=== PATIENT | male | born 1965 | race African-American/Black ===

== ENCOUNTER 2020-09-28 21:09 | Inpatient (IN) | payer SELFPAY ==
[~2020-09-28] VITALS: Ht 177.8 cm; Wt 127.0 kg
[2020-09-28 22:28] LABS: BASO # 0.1 x10^3/uL (0.0-0.2); BASO % 1 % (0-3); EOS # 0.2 x10^3/uL (0.0-0.7); EOS % 2 % (0-3); HEMATOCRIT 31.2 % (39.0-53.0); HEMOGLOBIN 10.8 g/dL (13.0-17.5); LYMPH % 39 % (24-48); MEAN CORPUSCULAR HEMOGLOBIN 31 pg (25-35); MEAN CORPUSCULAR HGB CONC 35 g/dL (31-37); MEAN CORPUSCULAR VOLUME 90 fL (79-100); MONO # 0.9 x10^3/uL (0.0-1.1); MONO % 8 % (0-9); NEUT # 5.3 x10^3/uL (1.8-7.7); NEUT % 51 % (31-73); PLATELET COUNT 244 x10^3/uL (140-400); RED BLOOD COUNT 3.46 x10^6/uL (4.30-5.70); RED CELL DISTRIBUTION WIDTH 13.2 % (11.5-14.5); WHITE BLOOD COUNT 10.4 x10^3/uL (4.0-11.0)
[2020-09-28 22:33] LABS: FECAL OB PT POSITIVE (NEG)
[2020-09-28 22:38] LABS: PROTHROMBIN TIME PATIENT 13.2 SEC (11.7-14.0)
[2020-09-28 22:40] LABS: CALCIUM 9.1 mg/dL (8.5-10.1); CREATININE 1.4 mg/dL (0.7-1.3); GFR 64.1; POTASSIUM 3.5 mmol/L (3.5-5.1)
[2020-09-28 22:46] LABS: ALBUMIN 3.2 g/dL (3.4-5.0); MAGNESIUM 2.1 mg/dL (1.8-2.4); TOTAL BILIRUBIN 0.3 mg/dL (0.2-1.0); TOTAL PROTEIN 6.5 g/dL (6.4-8.2)
--- NOTE | 2020-09-28 22:53 | PHYS DOC ---
Past Medical History Past Medical History: Diabetes-Type II, Hypertension Past Surgical History: Other Additional Past Surgical Histo: HERNIA A CHILD Smoking Status: Never Smoker Alcohol Use: None General Adult EDM: Chief Complaint: ABDOMINAL PAIN HPI: HPI: Patient is a 54 year old man with history of diabetes type 2, hypertension, who presents to the ED today stating he believes he has a bleeding ulcer again. Patient states for the last 2 days he has had black tarry stools. He states to day he vomited bright red blood. He is also complaining of mild intermittent cramping-like pain diffusely throughout the abdomen since yesterday. Patient denies anything specifically exacerbating or relieving his abdominal pain. Patient denies being on any blood thinners. Review of Systems: Review of Systems: Constitutional: Denies fever or chills. [] Eyes: Denies change in visual acuity. [] HENT: Denies nasal congestion or sore throat. [] Respiratory: Denies cough or shortness of breath. [] Cardiovascular: Denies chest pain or edema. [] GI: Reports abdominal pain, hematemesis and melena : Denies dysuria. [] Musculoskeletal: Denies back pain or joint pain. [] Integument: Denies rash. [] Neurologic: Denies headache, focal weakness or sensory changes. [] Psychiatric: Denies depression or anxiety. [] Heart Score: Risk Factors: Risk Factors: DM, Current or recent (<one month) smoker, HTN, HLP, family history of CAD, obesity. Risk Scores: Score 0 - 3: 2.5% MACE over next 6 weeks - Discharge Home Score 4 - 6: 20.3% MACE over next 6 weeks - Admit for Clinical Observation Score 7 - 10: 72.7% MACE over next 6 weeks - Early Invasive Strategies Current Medications: Current Medications Medications (Trade) Dose Ordered Sig/Roberta Start Time Stop Time Status Last Admin Dose Admin Famotidine (Pepcid Vial) 20 mg 1X ONCE 09/28/20 23:00 09/28/20 23:01 Ondansetron HCl (Zofran) 4 mg 1X ONCE 09/28/20 23:00 09/28/20 23:01 Sodium Chloride 1,000 ml @ 1,000 mls/hr 1X ONCE 09/28/20 23:00 09/28/20 23:59 Allergies: Allergies: Allergies Coded Allergies Type Severity Reaction Last Updated Verified No Known Drug Allergies 09/28/20 No Physical Exam: PE: Constitutional: Well developed, well nourished, no acute distress, non-toxic appearance. [] HENT: Normocephalic, atraumatic, bilateral external ears normal, oropharynx moist, no oral exudates, nose normal. [] Eyes: PERRLA, EOMI, conjunctiva normal, no discharge. [] Neck: Normal range of motion, no tenderness, supple, no stridor. [] Cardiovascular:Heart rate regular rhythm, no murmur [] Lungs & Thorax: Bilateral breath sounds clear to auscultation [] Abdomen: Bowel sounds normal, soft, no tenderness, no masses, no pulsatile masses. [] Skin: Warm, dry, no erythema, no rash. [] Back: No tenderness, no CVA tenderness. [] Extremities: No tenderness, no cyanosis, no clubbing, ROM intact, no edema. [] Neurologic: Alert and oriented X 3, normal motor function, normal sensory fun ction, no focal deficits noted. [] Psychologic: Affect normal, judgement normal, mood normal. [] Current Patient Data: Labs: Laboratory Tests Test 09/28/20 22:03 09/28/20 22:15 Stool Occult Blood Positive (NEG) White Blood Count 10.4 x10^3/uL (4.0-11.0) Red Blood Count 3.46 x10^6/uL (4.30-5.70) L Hemoglobin 10.8 g/dL (13.0-17.5) L Hematocrit 31.2 % (39.0-53.0) L Mean Corpuscular Volume 90 fL (79-100) Mean Corpuscular Hemoglobin 31 pg (25-35) Mean Corpuscular Hemoglobin Concent 35 g/dL (31-37) Red Cell Distribution Width 13.2 % (11.5-14.5) Platelet Count 244 x10^3/uL (140-400) Neutrophils (%) (Auto) 51 % (31-73) Lymphocytes (%) (Auto) 39 % (24-48) Monocytes (%) (Auto) 8 % (0-9) Eosinophils (%) (Auto) 2 % (0-3) Basophils (%) (Auto) 1 % (0-3) Neutrophils # (Auto) 5.3 x10^3/uL (1.8-7.7) Lymphocytes # (Auto) 4.0 x10^3/uL (1.0-4.8) Monocytes # (Auto) 0.9 x10^3/uL (0.0-1.1) Eosinophils # (Auto) 0.2 x10^3/uL (0.0-0.7) Basophils # (Auto) 0.1 x10^3/uL (0.0-0.2) Prothrombin Time 13.2 SEC (11.7-14.0) Prothrombin Time INR 1.0 (0.8-1.1) Activated Partial Thromboplast Time 27 SEC (24-38) Sodium Level 140 mmol/L (136-145) Potassium Level 3.5 mmol/L (3.5-5.1) Chloride Level 105 mmol/L (98-107) Carbon Dioxide Level 28 mmol/L (21-32) Anion Gap 7 (6-14) Blood Urea Nitrogen 40 mg/dL (8-26) H Creatinine 1.4 mg/dL (0.7-1.3) H Estimated GFR (Cockcroft-Gault) 64.1 BUN/Creatinine Ratio 29 (6-20) H Glucose Level 250 mg/dL (70-99) H Calcium Level 9.1 mg/dL (8.5-10.1) Magnesium Level 2.1 mg/dL (1.8-2.4) Total Bilirubin 0.3 mg/dL (0.2-1.0) Aspartate Amino Transferase (AST) 8 U/L (15-37) L Alanine Aminotransferase (ALT) 21 U/L (16-63) Alkaline Phosphatase 57 U/L (46-116) Total Protein 6.5 g/dL (6.4-8.2) Albumin 3.2 g/dL (3.4-5.0) L Albumin/Globulin Ratio 1.0 (1.0-1.7) Lipase 91 U/L (73-393) Ethyl Alcohol Level < 10 mg/dL (0-10) Laboratory Tests 09/28/20 22:15 Laboratory Tests 09/28/20 22:15 Vital Signs: Vital Signs Date Time Temp Pulse Resp B/P (MAP) Pulse Ox O2 Delivery O2 Flow Rate FiO2 09/28/20 21:55 98.7 91 13 131/71 (91) 99 Room Air 98.7 EKG: EKG: [] Radiology/Procedures: Radiology/Procedures: []PROCEDURE: CT ABD PELV W/ IV CONTRST ONLY EXAM: CT ABDOMEN/PELVIS WITH CONTRAST. HISTORY: Abdominal pain, vomiting, gastrointestinal hemorrhage. TECHNIQUE: Computed tomography of the abdomen and pelvis was performed after the intravenous administration of iodinated contrast. One or more of the following individualized dose reduction techniques were utilized for this examination: 1. Automated exposure control. 2. Adjustment of the mA and/or kV according to patient size. 3. Use of iterative reconstruction technique. COMPARISON: None. FINDINGS: Lung windows through the visualized portions of the bases reveal mild atelectasis. Bone windows reveal no suspicious lesions. There is a moderate hiatal hernia. Paraesophageal lymph nodes at the hiatus measure 1 cm or less. No clear underlying is identified. A low attenuation mass at the left renal lower pole measures 1.6 cm and 52 Hounsfield units. This is most likely a proteinaceous/hemorrhagic cyst but is indeterminate. Small cortical scar is suspected along the right lower pole laterally. There is a calcified granuloma in the spleen. The adrenal glands, gallbladder, liver and pancreas demonstrate no suspicious lesions. There are no pathologically enlarged lymph nodes. Bilateral fat-containing inguinal hernias are moderate on the left and small on the right. The prostate is mildly enlarged with a prominent median lobe that impresses on the bladder base. Sigmoid diverticulosis is mild. The appendix is not inflamed. There is no small bowel obstruction. IMPRESSION: 1. Moderate hiatal hernia. Adjacent paraesophageal lymph nodes may reflect underlying inflammation but are indeterminate. Endoscopy is more sensitive for mucosal lesions. 2. A 1.6 cm mass in the left renal lower pole is most likely a complicated cyst. Sonography could further differentiate cystic from solid lesions. 3. Moderate left and small right inguinal hernias contain only fat. Electronically signed by: Brian Walter MD (09/28/2020 11:16 PM) [facility] DICTATED and SIGNED BY: SUPA WALTER MD DATE: 09/28/20 [id number] 0 Course & Med Decision Making: Course & Med Decision Making Pertinent Labs and Imaging studies reviewed. (See chart for details) This is a 54-year-old male patient with a history of bleeding ulcers presenting today complaining of black tarry stools for 2 days and hematemesis today. Also complaining of abdominal pain. Vitals on arrival to the ED temperature 98.7, heart rate 91, respirations 13 on room air, blood pressure 131/71, O2 sats 99%. CBC with a normal WBC, hemoglobin 10.8, hematocrit 31.2. CMP with creatinine of 1.4, BUN of 40, glucose of 250, anion gap is normal. History of diabetes type 2. Positive Hemoccult. Given famotidine, IV fluids. Admitted under Dr. Dallas report to given by Dr. Sanchez in AM Will put consult for GI Started on Protonix jarrod Burnham Disclaimer: Chacha Disclaimer: This electronic medical record was generated, in whole or in part, using a voice recognition dictation system. Departure Departure Impression: Primary Impression: GI bleed Qualified Codes: K92.1 - Melena Additional Impression: Anemia Qualified Codes: D64.89 - Other specified anemias Disposition: ADMITTED INPT THIS HOSP Condition: STABLE Referrals: NO PCP (PCP) LAZARA CORTES APRN Sep 28, 2020 22:53
[2020-09-28] MEDS ORDERED: ONDANSETRON PF 4 MG/2 ML VIAL. IVP ONE (23:00)
[2020-09-28] MEDS ORDERED: IV NORMAL SALINE 1000ML BAG 1,000 ML IV ONE (23:00)
[2020-09-28] MEDS ORDERED: FAMOTIDINE 20 MG/2 ML VIAL IVP ONE (23:00)
[2020-09-28] MEDS ORDERED: CONTRAST GIVEN. MC PRN (23:00)
--- NOTE | 2020-09-28 23:19 | RAD ---
EXAM: CT ABDOMEN/PELVIS WITH CONTRAST. HISTORY: Abdominal pain, vomiting, gastrointestinal hemorrhage. TECHNIQUE: Computed tomography of the abdomen and pelvis was performed after the intravenous administ ration of iodinated contrast. One or more of the following individualized dose reduction techniques w ere utilized for this examination: 1. Automated exposure control. 2. Adjustment of the mA and/or kV according to patient size. 3. Use of iterative reconstruction technique. COMPARISON: None. FINDINGS: Lung windows through the visualized portions of the bases reveal mild atelectasis. Bone win dows reveal no suspicious lesions. There is a moderate hiatal hernia. Paraesophageal lymph nodes at the hiatus measure 1 cm or less. No clear underlying is identified. A low attenuation mass at the left renal lower pole measures 1.6 cm and 52 Hounsfield units. This is most likely a proteinaceous/hemorrhagic cyst but is indeterminate. Small cortical scar is suspected a long the right lower pole laterally. There is a calcified granuloma in the spleen. The adrenal glands, gallbladder, liver and pancreas dem onstrate no suspicious lesions. There are no pathologically enlarged lymph nodes. Bilateral fat-containing inguinal hernias are moder ate on the left and small on the right. The prostate is mildly enlarged with a prominent median lobe that impresses on the bladder base. Sigmoid diverticulosis is mild. The appendix is not inflamed. The re is no small bowel obstruction. IMPRESSION: 1. Moderate hiatal hernia. Adjacent paraesophageal lymph nodes may reflect underlying inflammation bu t are indeterminate. Endoscopy is more sensitive for mucosal lesions. 2. A 1.6 cm mass in the left renal lower pole is most likely a complicated cyst. Sonography could fur ther differentiate cystic from solid lesions. 3. Moderate left and small right inguinal hernias contain only fat. Electronically signed by: Brian Walter MD (09/28/2020 11:16 PM) [facility]
[2020-09-28] MEDS ORDERED: IOHEXOL 300 MG/ML 100ML VIAL. IV ONE (23:30)
[2020-09-28] MEDS ORDERED: ONDANSETRON PF 4 MG/2 ML VIAL. IV PRN (23:45)
[2020-09-28] MEDS ORDERED: MORPHINE SULFATE 2 MG/ML VIAL. IV PRN (23:45)
[2020-09-29 00:20] VITALS: BP 136/74
[2020-09-29] MEDS: PANTOPRAZOLE SODIUM IV DRIP 80 MG in IV NORMAL SALINE 100ML 100 ML IV SCH ×2 (00:22→09:32)
[2020-09-29] MEDS ORDERED: CARV3.12 PO (01:19)
[2020-09-29] MEDS ORDERED: LISI-517 PO (01:19)
[2020-09-29] MEDS ORDERED: AMLO-187 PO (01:19)
[2020-09-29] MEDS ORDERED: METF10007 PO (01:19)
--- NOTE | 2020-09-29 01:44 | NUR ---
The patient, NOEMÍ CARDOZA, 54 y/o, M admitted by SHAQUILLE STOVER MD, was given written information regarding hospital policies, unit procedures and contact persons. Valuables were checked and wallet, keys, cell phone, cell phone personal attendant, pants, undergarments, shoes, shirt, and jacket.
[2020-09-29 02:37] LABS: BILIRUBIN,URINE NEGATIVE (NEG); CLARITY,URINE CLEAR; COLOR,URINE YELLOW; NITRITE,URINE NEGATIVE (NEG); PROTEIN,URINE NEGATIVE (NEG-TRACE); UROBILINOGEN,URINE 0.2 mg/dL (0.2 mg/dL)
[2020-09-29 02:44] LABS: BARBITURATES NEG (NEG); BENZODIAZEPINES NEG (NEG); CANNABINOIDS NEG (NEG); COCAINE NEG (NEG); METHADONE NEG (NEG); OPIATES NEG (NEG); PHENCYCLIDINE NEG (NEG)
[2020-09-29 03:00] LABS: AMPHETAMINE/METHAMPHETAMINE NEG (NEG)
[2020-09-29 03:07] LABS: BACTERIA,URINE 0 /HPF (0-FEW); RBC,URINE 0 /HPF (0-2); WBC,URINE 0 /HPF (0-4)
[2020-09-29 03:45] VITALS: BP 124/72
--- NOTE | 2020-09-29 06:42 | PDOC1 ---
History and Physical Date of Admission Date of Admission DATE: 09/29/20 TIME: 06:27 Identification/Chief Complaint Chief Complaint Dark stools, hematemesis Source Source: Chart review, Patient History of Present Illness History of Present Illness Patient is a 54-year-old male with past medical history of DM 2, hypertension, who presents to the ER with complaints of black tarry stools for the past 2 days. He also reports associated intermittent cramping abdominal pain and hematemesis yesterday. Denies any aggravating or alleviating factors. He does note a history of bleeding ulcers. Upon admission hemoglobin 10.8, hematocrit 31.2, BUN 40, creatinine 1.4. Will admit patient for further medical management. Past Medical History Past Medical History DM2, hypertension Past Surgical History Past Surgical History Hernia repair Family History Family History: Hypertension Social History Smoke: No ALCOHOL: none Drugs: None Current Problem List Problem List Problems Medical Problems: (1) Anemia Status: Acute (2) GI bleed Status: Acute Current Medications Current Medications Current Medications Sodium Chloride 1,000 ml @ 1,000 mls/hr 1X ONCE IV Last administered on 09/28/20at 23:06; Start 09/28/20 at 23:00; Stop 09/28/20 at 23:59; Status DC Famotidine (Pepcid Vial) 20 mg 1X ONCE IVP Last administered on 09/28/20at 23:07; Start 09/28/20 at 23:00; Stop 09/28/20 at 23:01; Status DC Ondansetron HCl (Zofran) 4 mg 1X ONCE IVP Last administered on 09/28/20at 23:07; Start 09/28/20 at 23:00; Stop 09/28/20 at 23:01; Status DC Iohexol (Omnipaque 300 Mg/ml) 75 ml 1X ONCE IV Last administered on 09/28/20at 23:02; Start 09/28/20 at 23:30; Stop 09/28/20 at 23:31; Status DC Info (CONTRAST GIVEN -- Rx MONITORING) 1 each PRN DAILY PRN MC SEE COMMENTS; Start 09/28/20 at 23:00; Stop 09/30/20 at 22:59 Ondansetron HCl (Zofran) 4 mg PRN Q8HRS PRN IV NAUSEA/VOMITING 1ST CHOICE; Start 09/28/20 at 23:45; Stop 09/29/20 at 23:44 Morphine Sulfate (Morphine Sulfate) 2 mg PRN Q2HR PRN IV SEVERE PAIN 7-10; Start 09/28/20 at 23:45; Stop 09/29/20 at 23:44 Pantoprazole Sodium 80 mg/ Sodium Chloride 100 ml @ 10 mls/hr Q10H IV Last administered on 09/29/20at 00:22; Start 09/28/20 at 23:45; Stop 09/29/20 at 23:44 Active Scripts Active Reported Amlodipine Besylate 10 Mg Tablet 10 Mg PO DAILY Coreg (Carvedilol) 3.125 Mg Tablet 3.125 Mg PO DAILY Metformin Hcl 1,000 Mg Tablet 1,000 Mg PO BIDWMEALS Lisinopril 5 Mg Tablet 1 Tab PO DAILY Allergies Allergies: Coded Allergies: No Known Drug Allergies (Unverified , 09/29/20) ROS Review of System GENERAL: No history of weight change, weakness or fevers. SKIN: No bruising, hair changes or rashes. EYES: No blurred, double or loss of vision. NOSE AND THROAT: No history of nosebleeds, hoarseness or sore throat. HEART: Denies chest pain, denies palpitations. LUNGS: Denies cough, hemoptysis, wheezing or shortness of breath. GASTROINTESTINAL: Abdominal pain, nausea, hematemesis. Denies diarrhea. GENITOURINARY: Denies dysuria, frequency, urgency, hematuria. NEUROLOGIC: Denies history of numbness, tingling, tremor or weakness. PSYCHIATRIC: Denies anxiety, denies depression. ENDOCRINE: No history of heat or cold intolerance, polyuria or polydipsia. EXTREMITIES: Denies muscle weakness, joint pain, pain on walking or stiffness. Physical Exam Physical Exam General: Alert, Oriented X3, Cooperative, mild distress HEENT: PERRLA, EOMI Lungs: Clear to auscultation, Normal air movement Heart: RRR, no murmurs Cardiovascular: S1, S2 Abdomen: Epigastric abdominal tenderness. Normal bowel sounds, Soft. Extremities: No clubbing, No cyanosis Skin: No rashes, No significant lesion Neuro: Normal speech, Normal tone, Sensation intact Psych/Mental Status: Mental status NL, Mood NL Vitals Vitals Vital Signs Date Time Temp Pulse Resp B/P (MAP) Pulse Ox O2 Delivery O2 Flow Rate FiO2 09/29/20 03:45 98.3 90 20 124/72 (89) 99 Room Air 98.3 Labs Labs Laboratory Tests Test 09/28/20 22:03 09/28/20 22:15 09/29/20 02:30 Stool Occult Blood Positive (NEG) White Blood Count 10.4 x10^3/uL (4.0-11.0) Red Blood Count 3.46 x10^6/uL (4.30-5.70) Hemoglobin 10.8 g/dL (13.0-17.5) Hematocrit 31.2 % (39.0-53.0) Mean Corpuscular Volume 90 fL (79-100) Mean Corpuscular Hemoglobin 31 pg (25-35) Mean Corpuscular Hemoglobin Concent 35 g/dL (31-37) Red Cell Distribution Width 13.2 % (11.5-14.5) Platelet Count 244 x10^3/uL (140-400) Neutrophils (%) (Auto) 51 % (31-73) Lymphocytes (%) (Auto) 39 % (24-48) Monocytes (%) (Auto) 8 % (0-9) Eosinophils (%) (Auto) 2 % (0-3) Basophils (%) (Auto) 1 % (0-3) Neutrophils # (Auto) 5.3 x10^3/uL (1.8-7.7) Lymphocytes # (Auto) 4.0 x10^3/uL (1.0-4.8) Monocytes # (Auto) 0.9 x10^3/uL (0.0-1.1) Eosinophils # (Auto) 0.2 x10^3/uL (0.0-0.7) Basophils # (Auto) 0.1 x10^3/uL (0.0-0.2) Prothrombin Time 13.2 SEC (11.7-14.0) Prothromb Time International Ratio 1.0 (0.8-1.1) Activated Partial Thromboplast Time 27 SEC (24-38) Sodium Level 140 mmol/L (136-145) Potassium Level 3.5 mmol/L (3.5-5.1) Chloride Level 105 mmol/L (98-107) Carbon Dioxide Level 28 mmol/L (21-32) Anion Gap 7 (6-14) Blood Urea Nitrogen 40 mg/dL (8-26) Creatinine 1.4 mg/dL (0.7-1.3) Estimated GFR (Cockcroft-Gault) 64.1 BUN/Creatinine Ratio 29 (6-20) Glucose Level 250 mg/dL (70-99) Calcium Level 9.1 mg/dL (8.5-10.1) Magnesium Level 2.1 mg/dL (1.8-2.4) Total Bilirubin 0.3 mg/dL (0.2-1.0) Aspartate Amino Transf (AST/SGOT) 8 U/L (15-37) Alanine Aminotransferase (ALT/SGPT) 21 U/L (16-63) Alkaline Phosphatase 57 U/L (46-116) Total Protein 6.5 g/dL (6.4-8.2) Albumin 3.2 g/dL (3.4-5.0) Albumin/Globulin Ratio 1.0 (1.0-1.7) Lipase 91 U/L (73-393) Ethyl Alcohol Level < 10 mg/dL (0-10) Urine Collection Type Unknown Urine Color Yellow Urine Clarity Clear Urine pH 6.0 (<5.0-8.0) Urine Specific Josephine >=1.030 (1.000-1.030) Urine Protein Negative mg/dL (NEG-TRACE) Urine Glucose (UA) 250 mg/dL (NEG) Urine Ketones (Stick) Negative mg/dL (NEG) Urine Blood Negative (NEG) Urine Nitrite Negative (NEG) Urine Bilirubin Negative (NEG) Urine Urobilinogen Dipstick 0.2 mg/dL (0.2 mg/dL) Urine Leukocyte Esterase Negative (NEG) Urine RBC 0 /HPF (0-2) Urine WBC 0 /HPF (0-4) Urine Squamous Epithelial Cells Occ /LPF Urine Bacteria 0 /HPF (0-FEW) Urine Opiates Screen Neg (NEG) Urine Methadone Screen Neg (NEG) Urine Barbiturates Neg (NEG) Urine Phencyclidine Screen Neg (NEG) Urine Amphetamine/Methamphetamine Neg (NEG) Urine Benzodiazepines Screen Neg (NEG) Urine Cocaine Screen Neg (NEG) Urine Cannabinoids Screen Neg (NEG) Urine Ethyl Alcohol Neg (NEG) Laboratory Tests Test 09/28/20 22:03 09/28/20 22:15 09/29/20 02:30 Stool Occult Blood Positive (NEG) White Blood Count 10.4 x10^3/uL (4.0-11.0) Red Blood Count 3.46 x10^6/uL (4.30-5.70) Hemoglobin 10.8 g/dL (13.0-17.5) Hematocrit 31.2 % (39.0-53.0) Mean Corpuscular Volume 90 fL (79-100) Mean Corpuscular Hemoglobin 31 pg (25-35) Mean Corpuscular Hemoglobin Concent 35 g/dL (31-37) Red Cell Distribution Width 13.2 % (11.5-14.5) Platelet Count 244 x10^3/uL (140-400) Neutrophils (%) (Auto) 51 % (31-73) Lymphocytes (%) (Auto) 39 % (24-48) Monocytes (%) (Auto) 8 % (0-9) Eosinophils (%) (Auto) 2 % (0-3) Basophils (%) (Auto) 1 % (0-3) Neutrophils # (Auto) 5.3 x10^3/uL (1.8-7.7) Lymphocytes # (Auto) 4.0 x10^3/uL (1.0-4.8) Monocytes # (Auto) 0.9 x10^3/uL (0.0-1.1) Eosinophils # (Auto) 0.2 x10^3/uL (0.0-0.7) Basophils # (Auto) 0.1 x10^3/uL (0.0-0.2) Prothrombin Time 13.2 SEC (11.7-14.0) Prothromb Time International Ratio 1.0 (0.8-1.1) Activated Partial Thromboplast Time 27 SEC (24-38) Sodium Level 140 mmol/L (136-145) Potassium Level 3.5 mmol/L (3.5-5.1) Chloride Level 105 mmol/L (98-107) Carbon Dioxide Level 28 mmol/L (21-32) Anion Gap 7 (6-14) Blood Urea Nitrogen 40 mg/dL (8-26) Creatinine 1.4 mg/dL (0.7-1.3) Estimated GFR (Cockcroft-Gault) 64.1 BUN/Creatinine Ratio 29 (6-20) Glucose Level 250 mg/dL (70-99) Calcium Level 9.1 mg/dL (8.5-10.1) Magnesium Level 2.1 mg/dL (1.8-2.4) Total Bilirubin 0.3 mg/dL (0.2-1.0) Aspartate Amino Transf (AST/SGOT) 8 U/L (15-37) Alanine Aminotransferase (ALT/SGPT) 21 U/L (16-63) Alkaline Phosphatase 57 U/L (46-116) Total Protein 6.5 g/dL (6.4-8.2) Albumin 3.2 g/dL (3.4-5.0) Albumin/Globulin Ratio 1.0 (1.0-1.7) Lipase 91 U/L (73-393) Ethyl Alcohol Level < 10 mg/dL (0-10) Urine Collection Type Unknown Urine Color Yellow Urine Clarity Clear Urine pH 6.0 (<5.0-8.0) Urine Specific Josephine >=1.030 (1.000-1.030) Urine Protein Negative mg/dL (NEG-TRACE) Urine Glucose (UA) 250 mg/dL (NEG) Urine Ketones (Stick) Negative mg/dL (NEG) Urine Blood Negative (NEG) Urine Nitrite Negative (NEG) Urine Bilirubin Negative (NEG) Urine Urobilinogen Dipstick 0.2 mg/dL (0.2 mg/dL) Urine Leukocyte Esterase Negative (NEG) Urine RBC 0 /HPF (0-2) Urine WBC 0 /HPF (0-4) Urine Squamous Epithelial Cells Occ /LPF Urine Bacteria 0 /HPF (0-FEW) Urine Opiates Screen Neg (NEG) Urine Methadone Screen Neg (NEG) Urine Barbiturates Neg (NEG) Urine Phencyclidine Screen Neg (NEG) Urine Amphetamine/Methamphetamine Neg (NEG) Urine Benzodiazepines Screen Neg (NEG) Urine Cocaine Screen Neg (NEG) Urine Cannabinoids Screen Neg (NEG) Urine Ethyl Alcohol Neg (NEG) Images Images EXAM: CT ABDOMEN/PELVIS WITH CONTRAST. HISTORY: Abdominal pain, vomiting, gastrointestinal hemorrhage. TECHNIQUE: Computed tomography of the abdomen and pelvis was performed after the intravenous administration of iodinated contrast. One or more of the following individualized dose reduction techniques were utilized for this examination: 1. Automated exposure control. 2. Adjustment of the mA and/or kV according to patient size. 3. Use of iterative reconstruction technique. COMPARISON: None. FINDINGS: Lung windows through the visualized portions of the bases reveal mild atelectasis. Bone windows reveal no suspicious lesions. There is a moderate hiatal hernia. Paraesophageal lymph nodes at the hiatus measure 1 cm or less. No clear underlying is identified. A low attenuation mass at the left renal lower pole measures 1.6 cm and 52 Hounsfield units. This is most likely a proteinaceous/hemorrhagic cyst but is indeterminate. Small cortical scar is suspected along the right lower pole laterally. There is a calcified granuloma in the spleen. The adrenal glands, gallbladder, liver and pancreas demonstrate no suspicious lesions. There are no pathologically enlarged lymph nodes. Bilateral fat-containing inguinal hernias are moderate on the left and small on the right. The prostate is mildly enlarged with a prominent median lobe that impresses on the bladder base. Sigmoid diverticulosis is mild. The appendix is not inflamed. There is no small bowel obstruction. IMPRESSION: 1. Moderate hiatal hernia. Adjacent paraesophageal lymph nodes may reflect underlying inflammation but are indeterminate. Endoscopy is more sensitive for mucosal lesions. 2. A 1.6 cm mass in the left renal lower pole is most likely a complicated cyst. Sonography could further differentiate cystic from solid lesions. 3. Moderate left and small right inguinal hernias contain only fat. VTE Prophylaxis Ordered VTE Prophylaxis Devices: Yes VTE Pharmacological Prophylaxi: No Assessment/Plan Assessment/Plan Upper GI bleed DM2 with hyperglycemia Left renal mass Hypertension Malnutrition Plan: Consult placed to GI Stool occult blood positive Continue Protonix infusion Will obtain ultrasound left kidney to further evaluate renal mass Basal/prandial insulin Resume home medications FEN - ADA diet PPX - SCDs FULL CODE Dispo - inpatient for above Justifications for Admission Other Justification SHAQUILLE STOVER MD Sep 29, 2020 06:42
[2020-09-29] MEDS ORDERED: LABETALOL 20 MG/4 ML DISP.SYRIN. IVP PRN (06:45)
[2020-09-29] MEDS ORDERED: DEXTROSE 50% 25 GM / 50ML DISP.SYRIN. IV PRN (06:45)
[2020-09-29 07:00] VITALS: BP 135/73
[2020-09-29] MEDS ORDERED: MAG HYDROX/ALUMINUM HYD/SIMETH 30 ML ORAL.SUSP PO PRN (07:30)
[2020-09-29] MEDS ORDERED: MORPHINE SULFATE 2 MG/ML VIAL. IV PRN (07:30)
[2020-09-29] MEDS ORDERED: CALCIUM CARBONATE 500 MG TAB.CHEW PO PRN (07:30)
[2020-09-29] MEDS ORDERED: ONDANSETRON PF 4 MG/2 ML VIAL. IVP PRN (07:30)
[2020-09-29] MEDS ORDERED: ACETAMINOPHEN 325 MG TABLET. PO PRN (07:30)
[2020-09-29] MEDS ORDERED: BISACODYL 10 MG SUPP.RECT. PR PRN (07:30)
[2020-09-29] MEDS ORDERED: MAGNESIUM HYDROXIDE 2,400 MG/30 ML ORAL.SUSP. PO PRN (07:30)
[2020-09-29] MEDS ORDERED: ZOLPIDEM 5 MG TABLET. PO PRN (07:30)
[2020-09-29 07:59] LABS: BASO # 0.1 x10^3/uL (0.0-0.2); BASO % 1 % (0-3); EOS # 0.1 x10^3/uL (0.0-0.7); EOS % 2 % (0-3); HEMATOCRIT 27.3 % (39.0-53.0); HEMOGLOBIN 9.3 g/dL (13.0-17.5); LYMPH # 2.5 x10^3/uL (1.0-4.8); LYMPH % 34 % (24-48); MEAN CORPUSCULAR HEMOGLOBIN 31 pg (25-35); MEAN CORPUSCULAR HGB CONC 34 g/dL (31-37); MEAN CORPUSCULAR VOLUME 91 fL (79-100); MONO # 0.6 x10^3/uL (0.0-1.1); MONO % 8 % (0-9); NEUT % 55 % (31-73); PLATELET COUNT 200 x10^3/uL (140-400); RED CELL DISTRIBUTION WIDTH 13.7 % (11.5-14.5); WHITE BLOOD COUNT 7.2 x10^3/uL (4.0-11.0)
[2020-09-29] MEDS ORDERED: CARVEDILOL 12.5 MG TABLET. PO SCH (08:00)
[2020-09-29] MEDS: INSULIN LISPRO 300 UNITS/3 ML VIAL. SQ SCH ×2 (08:00→12:00)
[2020-09-29] MEDS ORDERED: CARVEDILOL 3.125 MG TABLET. PO SCH (08:00)
[2020-09-29 08:10] LABS: ALBUMIN 2.9 g/dL (3.4-5.0); CREATININE 1.2 mg/dL (0.7-1.3); GFR 76.6; POTASSIUM 3.7 mmol/L (3.5-5.1); TOTAL BILIRUBIN 0.4 mg/dL (0.2-1.0); TOTAL PROTEIN 5.7 g/dL (6.4-8.2)
[2020-09-29] MEDS ORDERED: CARV25TA2 PO (08:11)
--- NOTE | 2020-09-29 08:59 | PDOC2 ---
GI CONSULT Date of Service: DATE: 09/29/20 TIME: 08:59 Reason For Consult: GI bleed HPI: HPI: 54 y/o male admitted through ER. "Black" loose stools x 3 - twice Monday, once yesterday. Denies precipitating events. Similar to past bleeding ulcer in 1995 diagnosed w/ EGD - unclear cause (says wasn't taking NSAIDs, H. pylori didn't sound familiar). Transfusions recommended then but he declined and eventually got better. Also vomited blood back then, so to see if this was the same issue, induced vomiting this time and "coughed up" some red blood x 1. Also describes some dizziness and weakness. H/o GERD on Pepcid QD. Dysphagia intermittently w/ solid foods for a few months - mentions "fries go down real slow," uncomfortable. Not sure if has occurred w/ liquids or pills. No nausea, abd pain, constipation, hematochezia, or weight loss. Had several EGDs after initial one in 1995 - says ulcers healed. No previous colonoscopy. No GB, liver, or pancreas history. Occasional ibuprofen. No recent h/o anemia. PMH: PMH: HTN, DM, peripheral neuropathy, GERD, PUD left inguinal hernia repair FH: Family History: Cancer (brain, prostate) Social History: Smoke: No ALCOHOL: none Drugs: None ROS: GEN: Denies fevers, chills, sweats HEENT: Denies blurred vision, sore throat CV: Denies chest pain RESP: Denies shortness of air, cough GI: Per HPI : Denies hematuria, dysuria ENDO: Denies weight changes NEURO: +dizziness MSK: +weakness SKIN: Denies jaundice, pruritus Vitals: Vitals: Vital Signs Date Time Temp Pulse Resp B/P (MAP) Pulse Ox O2 Delivery O2 Flow Rate FiO2 09/29/20 07:00 97.9 87 20 135/73 (93) 97 Room Air 97.9 Labs: Labs: Laboratory Tests Test 09/28/20 22:03 09/28/20 22:15 09/29/20 02:30 09/29/20 07:40 Stool Occult Blood Positive (NEG) White Blood Count 10.4 x10^3/uL (4.0-11.0) 7.2 x10^3/uL (4.0-11.0) Red Blood Count 3.46 x10^6/uL (4.30-5.70) 3.00 x10^6/uL (4.30-5.70) Hemoglobin 10.8 g/dL (13.0-17.5) 9.3 g/dL (13.0-17.5) Hematocrit 31.2 % (39.0-53.0) 27.3 % (39.0-53.0) Mean Corpuscular Volume 90 fL (79-100) 91 fL (79-100) Mean Corpuscular Hemoglobin 31 pg (25-35) 31 pg (25-35) Mean Corpuscular Hemoglobin Concent 35 g/dL (31-37) 34 g/dL (31-37) Red Cell Distribution Width 13.2 % (11.5-14.5) 13.7 % (11.5-14.5) Platelet Count 244 x10^3/uL (140-400) 200 x10^3/uL (140-400) Neutrophils (%) (Auto) 51 % (31-73) 55 % (31-73) Lymphocytes (%) (Auto) 39 % (24-48) 34 % (24-48) Monocytes (%) (Auto) 8 % (0-9) 8 % (0-9) Eosinophils (%) (Auto) 2 % (0-3) 2 % (0-3) Basophils (%) (Auto) 1 % (0-3) 1 % (0-3) Neutrophils # (Auto) 5.3 x10^3/uL (1.8-7.7) 4.0 x10^3/uL (1.8-7.7) Lymphocytes # (Auto) 4.0 x10^3/uL (1.0-4.8) 2.5 x10^3/uL (1.0-4.8) Monocytes # (Auto) 0.9 x10^3/uL (0.0-1.1) 0.6 x10^3/uL (0.0-1.1) Eosinophils # (Auto) 0.2 x10^3/uL (0.0-0.7) 0.1 x10^3/uL (0.0-0.7) Basophils # (Auto) 0.1 x10^3/uL (0.0-0.2) 0.1 x10^3/uL (0.0-0.2) Prothrombin Time 13.2 SEC (11.7-14.0) Prothromb Time International Ratio 1.0 (0.8-1.1) Activated Partial Thromboplast Time 27 SEC (24-38) Sodium Level 140 mmol/L (136-145) 145 mmol/L (136-145) Potassium Level 3.5 mmol/L (3.5-5.1) 3.7 mmol/L (3.5-5.1) Chloride Level 105 mmol/L (98-107) 109 mmol/L (98-107) Carbon Dioxide Level 28 mmol/L (21-32) 28 mmol/L (21-32) Anion Gap 7 (6-14) 8 (6-14) Blood Urea Nitrogen 40 mg/dL (8-26) 28 mg/dL (8-26) Creatinine 1.4 mg/dL (0.7-1.3) 1.2 mg/dL (0.7-1.3) Estimated GFR (Cockcroft-Gault) 64.1 76.6 BUN/Creatinine Ratio 29 (6-20) 23 (6-20) Glucose Level 250 mg/dL (70-99) 223 mg/dL (70-99) Calcium Level 9.1 mg/dL (8.5-10.1) 8.0 mg/dL (8.5-10.1) Magnesium Level 2.1 mg/dL (1.8-2.4) Total Bilirubin 0.3 mg/dL (0.2-1.0) 0.4 mg/dL (0.2-1.0) Aspartate Amino Transf (AST/SGOT) 8 U/L (15-37) 10 U/L (15-37) Alanine Aminotransferase (ALT/SGPT) 21 U/L (16-63) 20 U/L (16-63) Alkaline Phosphatase 57 U/L (46-116) 49 U/L (46-116) Total Protein 6.5 g/dL (6.4-8.2) 5.7 g/dL (6.4-8.2) Albumin 3.2 g/dL (3.4-5.0) 2.9 g/dL (3.4-5.0) Albumin/Globulin Ratio 1.0 (1.0-1.7) 1.0 (1.0-1.7) Lipase 91 U/L (73-393) Ethyl Alcohol Level < 10 mg/dL (0-10) Urine Collection Type Unknown Urine Color Yellow Urine Clarity Clear Urine pH 6.0 (<5.0-8.0) Urine Specific [place] >=1.030 (1.000-1.030) Urine Protein Negative mg/dL (NEG-TRACE) Urine Glucose (UA) 250 mg/dL (NEG) Urine Ketones (Stick) Negative mg/dL (NEG) Urine Blood Negative (NEG) Urine Nitrite Negative (NEG) Urine Bilirubin Negative (NEG) Urine Urobilinogen Dipstick 0.2 mg/dL (0.2 mg/dL) Urine Leukocyte Esterase Negative (NEG) Urine RBC 0 /HPF (0-2) Urine WBC 0 /HPF (0-4) Urine Squamous Epithelial Cells Occ /LPF Urine Bacteria 0 /HPF (0-FEW) Urine Opiates Screen Neg (NEG) Urine Methadone Screen Neg (NEG) Urine Barbiturates Neg (NEG) Urine Phencyclidine Screen Neg (NEG) Urine Amphetamine/Methamphetamine Neg (NEG) Urine Benzodiazepines Screen Neg (NEG) Urine Cocaine Screen Neg (NEG) Urine Cannabinoids Screen Neg (NEG) Urine Ethyl Alcohol Neg (NEG) Test 09/29/20 08:05 Glucose (Fingerstick) 229 mg/dL (70-99) Allergies: Coded Allergies: No Known Drug Allergies (Unverified , 09/28/20) Medications: Current Medications Medications (Trade) Dose Ordered Sig/Roberta Route PRN Reason Start Time Stop Time Status Last Admin Dose Admin Sodium Chloride 1,000 ml @ 1,000 mls/hr 1X ONCE IV 09/28/20 23:00 09/28/20 23:59 DC 09/28/20 23:06 Famotidine (Pepcid Vial) 20 mg 1X ONCE IVP 09/28/20 23:00 09/28/20 23:01 DC 09/28/20 23:07 Ondansetron HCl (Zofran) 4 mg 1X ONCE IVP 09/28/20 23:00 09/28/20 23:01 DC 09/28/20 23:07 Iohexol (Omnipaque 300 Mg/ml) 75 ml 1X ONCE IV 09/28/20 23:30 09/28/20 23:31 DC 09/28/20 23:02 Pantoprazole Sodium 80 mg/ Sodium Chloride 100 ml @ 10 mls/hr Q10H IV 09/28/20 23:45 09/29/20 23:44 09/29/20 00:22 Imaging: Imaging: CT A/P FINDINGS: Lung windows through the visualized portions of the bases reveal mild atelectasis. Bone windows reveal no suspicious lesions. There is a moderate hiatal hernia. Paraesophageal lymph nodes at the hiatus measure 1 cm or less. No clear underlying is identified. A low attenuation mass at the left renal lower pole measures 1.6 cm and 52 Hounsfield units. This is most likely a proteinaceous/hemorrhagic cyst but is indeterminate. Small cortical scar is suspected along the right lower pole laterally. There is a calcified granuloma in the spleen. The adrenal glands, gallbladder, liver and pancreas demonstrate no suspicious lesions. There are no pathologically enlarged lymph nodes. Bilateral fat-containing inguinal hernias are moderate on the left and small on the right. The prostate is mildly enlarged with a prominent median lobe that impresses on the bladder base. Sigmoid diverticulosis is mild. The appendix is not inflamed. There is no small bowel obstruction. IMPRESSION: 1. Moderate hiatal hernia. Adjacent paraesophageal lymph nodes may reflect underlying inflammation but are indeterminate. Endoscopy is more sensitive for mucosal lesions. 2. A 1.6 cm mass in the left renal lower pole is most likely a complicated cyst. Sonography could further differentiate cystic from solid lesions. 3. Moderate left and small right inguinal hernias contain only fat. Renal US pending PE: GEN: NAD HEENT: Atraumatic, PERRL LUNGS: CTAB HEART: RRR ABD: NABS, S/ND/NT EXTREMITY: No edema SKIN: No rashes, no jaundice NEURO/PSYCH: A & O 3 A/P: A/P: Dark stools, hematemesis/hemoptysis Normocytic anemia, + Hemoccult - drift in Hgb from 10.8 to 9.3 VERNELL - better H/o GERD and PUD - on H2 susan QD Intermittent solid food dysphagia Abnormal CT - moderate hiatal hernia w/ adjacent paraesophageal lymph nodes that may reflect underlying inflammation, indeterminate left renal mass CRC screen - none Diverticulosis - mild in sigmoid on CT DM -- EGD today at 2:00 p.m. w/ Dr. Poole pending rapid COVID test - d/w GI lab and nurse. Keep NPO, continue IV PPI. Check anemia parameters for completeness. Outpt screening colonoscopy. DAGO ASTORGA Sep 29, 2020 08:59
[2020-09-29] MEDS ORDERED: LISINOPRIL 5 MG TABLET. PO SCH (09:00)
[2020-09-29] MEDS ORDERED: amLODIPine BESYLATE 10 MG TABLET PO SCH (09:00)
--- NOTE | 2020-09-29 10:54 | RAD ---
Left renal ultrasound compared to CT scan of the abdomen dated September 28, 2020 for left renal mass vers us complex cyst. TECHNIQUE AND FINDINGS: Real-time grayscale and color Doppler evaluation of the left kidney and urina ry bladder is performed. The right kidney measures 11.9 x 4.9 x 6.2 cm. At the inferior pole of the l eft kidney, there is an endophytic simple appearing 1.1 cm cyst which does not correspond to the exop hytic abnormality seen on the CT scan. No exophytic abnormality is seen at the inferior pole the left kidney with this ultrasound scan. No hydronephrosis or perinephric fluid. No shadowing calculi. Urin jaycee bladder is grossly unremarkable. IMPRESSION: 1. Nonvisualization of the CT abnormality on the current ultrasound examination. Given the small size and circumscribed character of the abnormality seen on the CT scan, my recommendation is for follow- up three-phase CT scan or MRI of the abdomen in 6-12 months. Electronically signed by: Ousmane Solomon MD (09/29/2020 10:51 AM) [id number]
[2020-09-29 11:00] VITALS: BP 127/76
--- NOTE | 2020-09-29 11:33 | NUR ---
SS following for discharge planning. SS reviewed pt chart and discussed with pt RN. Pt is from home and is currently on room air. Pt having EGD today. Pt is self pay. Discharge plan is to home when medically ready. SS will continue to follow for discharge planning.
[2020-09-29] MEDS ORDERED: LIDOCAINE 2% PF 5 ML VIAL. ONE (13:33)
[2020-09-29] MEDS ORDERED: PROPOFOL 10 MG/ML (20ML) VIAL. IV ONE (13:33)
[2020-09-29] MEDS ORDERED: IV RINGERS,LACTATED 1000ML 1,000 ML IV SCH (13:45)
[2020-09-29] MEDS ORDERED: EPINEPHrine SYRINGE 1 MG/10 ML SYRINGE ONE (14:12)
--- NOTE | 2020-09-29 14:26 | PDOC4 ---
PROCEDURE Procedure EGD UGI bleeding anesthesia with propofol E- distal esophagitis with ulceration and likely 2 cm Roberson's (bx) one small visible vessel without active bleeding- injected with epi 3cc G- 5 cm hiatal hernia and mild esophagal narrowing stomach otherwise normal D- normal PPI BID soft diet repeat EGD in 6 months DEMOND HAMILTON MD Sep 29, 2020 14:26
[2020-09-29 14:50] VITALS: BP 134/64
[2020-09-29] MEDS ORDERED: fentaNYL PF VIAL 100 MCG/2 ML VIAL IVP ONE (15:00)
[2020-09-29] MEDS ORDERED: PANT40TA77 PO (15:52)
--- NOTE | 2020-09-29 15:59 | PDOC3 ---
Discharge Summary Visit Information Date of Admission: Sep 29, 2020 Date of Discharge: Sep 29, 2020 Final Diagnosis Problems Medical Problems: (1) Anemia Status: Acute (2) GI bleed Status: Acute Brief Hospital Course Allergies Allergies Coded Allergies Type Severity Reaction Last Updated Verified No Known Drug Allergies 09/29/20 No Vital Signs Vital Signs Date Time Temp Pulse Resp B/P (MAP) Pulse Ox O2 Delivery O2 Flow Rate FiO2 09/29/20 14:54 18 100 Room Air 09/29/20 14:50 77 134/64 09/29/20 14:38 2.0 09/29/20 14:20 97.7 97.7 Lab Results Laboratory Tests Test 09/28/20 22:03 09/28/20 22:15 09/29/20 02:30 09/29/20 07:40 Stool Occult Blood Positive (NEG) White Blood Count 10.4 x10^3/uL (4.0-11.0) 7.2 x10^3/uL (4.0-11.0) Red Blood Count 3.46 x10^6/uL (4.30-5.70) 3.00 x10^6/uL (4.30-5.70) Hemoglobin 10.8 g/dL (13.0-17.5) 9.3 g/dL (13.0-17.5) Hematocrit 31.2 % (39.0-53.0) 27.3 % (39.0-53.0) Mean Corpuscular Volume 90 fL (79-100) 91 fL (79-100) Mean Corpuscular Hemoglobin 31 pg (25-35) 31 pg (25-35) Mean Corpuscular Hemoglobin Concent 35 g/dL (31-37) 34 g/dL (31-37) Red Cell Distribution Width 13.2 % (11.5-14.5) 13.7 % (11.5-14.5) Platelet Count 244 x10^3/uL (140-400) 200 x10^3/uL (140-400) Neutrophils (%) (Auto) 51 % (31-73) 55 % (31-73) Lymphocytes (%) (Auto) 39 % (24-48) 34 % (24-48) Monocytes (%) (Auto) 8 % (0-9) 8 % (0-9) Eosinophils (%) (Auto) 2 % (0-3) 2 % (0-3) Basophils (%) (Auto) 1 % (0-3) 1 % (0-3) Neutrophils # (Auto) 5.3 x10^3/uL (1.8-7.7) 4.0 x10^3/uL (1.8-7.7) Lymphocytes # (Auto) 4.0 x10^3/uL (1.0-4.8) 2.5 x10^3/uL (1.0-4.8) Monocytes # (Auto) 0.9 x10^3/uL (0.0-1.1) 0.6 x10^3/uL (0.0-1.1) Eosinophils # (Auto) 0.2 x10^3/uL (0.0-0.7) 0.1 x10^3/uL (0.0-0.7) Basophils # (Auto) 0.1 x10^3/uL (0.0-0.2) 0.1 x10^3/uL (0.0-0.2) Prothrombin Time 13.2 SEC (11.7-14.0) Prothromb Time International Ratio 1.0 (0.8-1.1) Activated Partial Thromboplast Time 27 SEC (24-38) Sodium Level 140 mmol/L (136-145) 145 mmol/L (136-145) Potassium Level 3.5 mmol/L (3.5-5.1) 3.7 mmol/L (3.5-5.1) Chloride Level 105 mmol/L (98-107) 109 mmol/L (98-107) Carbon Dioxide Level 28 mmol/L (21-32) 28 mmol/L (21-32) Anion Gap 7 (6-14) 8 (6-14) Blood Urea Nitrogen 40 mg/dL (8-26) 28 mg/dL (8-26) Creatinine 1.4 mg/dL (0.7-1.3) 1.2 mg/dL (0.7-1.3) Estimated GFR (Cockcroft-Gault) 64.1 76.6 BUN/Creatinine Ratio 29 (6-20) 23 (6-20) Glucose Level 250 mg/dL (70-99) 223 mg/dL (70-99) Calcium Level 9.1 mg/dL (8.5-10.1) 8.0 mg/dL (8.5-10.1) Magnesium Level 2.1 mg/dL (1.8-2.4) Total Bilirubin 0.3 mg/dL (0.2-1.0) 0.4 mg/dL (0.2-1.0) Aspartate Amino Transf (AST/SGOT) 8 U/L (15-37) 10 U/L (15-37) Alanine Aminotransferase (ALT/SGPT) 21 U/L (16-63) 20 U/L (16-63) Alkaline Phosphatase 57 U/L (46-116) 49 U/L (46-116) Total Protein 6.5 g/dL (6.4-8.2) 5.7 g/dL (6.4-8.2) Albumin 3.2 g/dL (3.4-5.0) 2.9 g/dL (3.4-5.0) Albumin/Globulin Ratio 1.0 (1.0-1.7) 1.0 (1.0-1.7) Lipase 91 U/L (73-393) Ethyl Alcohol Level < 10 mg/dL (0-10) Urine Collection Type Unknown Urine Color Yellow Urine Clarity Clear Urine pH 6.0 (<5.0-8.0) Urine Specific [place] >=1.030 (1.000-1.030) Urine Protein Negative mg/dL (NEG-TRACE) Urine Glucose (UA) 250 mg/dL (NEG) Urine Ketones (Stick) Negative mg/dL (NEG) Urine Blood Negative (NEG) Urine Nitrite Negative (NEG) Urine Bilirubin Negative (NEG) Urine Urobilinogen Dipstick 0.2 mg/dL (0.2 mg/dL) Urine Leukocyte Esterase Negative (NEG) Urine RBC 0 /HPF (0-2) Urine WBC 0 /HPF (0-4) Urine Squamous Epithelial Cells Occ /LPF Urine Bacteria 0 /HPF (0-FEW) Urine Opiates Screen Neg (NEG) Urine Methadone Screen Neg (NEG) Urine Barbiturates Neg (NEG) Urine Phencyclidine Screen Neg (NEG) Urine Amphetamine/Methamphetamine Neg (NEG) Urine Benzodiazepines Screen Neg (NEG) Urine Cocaine Screen Neg (NEG) Urine Cannabinoids Screen Neg (NEG) Urine Ethyl Alcohol Neg (NEG) Iron Level 54 ug/dL (65-175) Total Iron Binding Capacity 279 ug/dL (250-450) Iron Saturation 19 % (15-34) Vitamin B12 Level 322 pg/mL (247-911) Test 09/29/20 08:05 09/29/20 09:40 09/29/20 11:49 Glucose (Fingerstick) 229 mg/dL (70-99) 232 mg/dL (70-99) SARS-CoV-2 Antigen (Rapid) Negative (NEGATIVE) Laboratory Tests Test 09/28/20 22:03 09/28/20 22:15 09/29/20 02:30 09/29/20 07:40 Stool Occult Blood Positive (NEG) White Blood Count 10.4 x10^3/uL (4.0-11.0) 7.2 x10^3/uL (4.0-11.0) Red Blood Count 3.46 x10^6/uL (4.30-5.70) 3.00 x10^6/uL (4.30-5.70) Hemoglobin 10.8 g/dL (13.0-17.5) 9.3 g/dL (13.0-17.5) Hematocrit 31.2 % (39.0-53.0) 27.3 % (39.0-53.0) Mean Corpuscular Volume 90 fL (79-100) 91 fL (79-100) Mean Corpuscular Hemoglobin 31 pg (25-35) 31 pg (25-35) Mean Corpuscular Hemoglobin Concent 35 g/dL (31-37) 34 g/dL (31-37) Red Cell Distribution Width 13.2 % (11.5-14.5) 13.7 % (11.5-14.5) Platelet Count 244 x10^3/uL (140-400) 200 x10^3/uL (140-400) Neutrophils (%) (Auto) 51 % (31-73) 55 % (31-73) Lymphocytes (%) (Auto) 39 % (24-48) 34 % (24-48) Monocytes (%) (Auto) 8 % (0-9) 8 % (0-9) Eosinophils (%) (Auto) 2 % (0-3) 2 % (0-3) Basophils (%) (Auto) 1 % (0-3) 1 % (0-3) Neutrophils # (Auto) 5.3 x10^3/uL (1.8-7.7) 4.0 x10^3/uL (1.8-7.7) Lymphocytes # (Auto) 4.0 x10^3/uL (1.0-4.8) 2.5 x10^3/uL (1.0-4.8) Monocytes # (Auto) 0.9 x10^3/uL (0.0-1.1) 0.6 x10^3/uL (0.0-1.1) Eosinophils # (Auto) 0.2 x10^3/uL (0.0-0.7) 0.1 x10^3/uL (0.0-0.7) Basophils # (Auto) 0.1 x10^3/uL (0.0-0.2) 0.1 x10^3/uL (0.0-0.2) Prothrombin Time 13.2 SEC (11.7-14.0) Prothromb Time International Ratio 1.0 (0.8-1.1) Activated Partial Thromboplast Time 27 SEC (24-38) Sodium Level 140 mmol/L (136-145) 145 mmol/L (136-145) Potassium Level 3.5 mmol/L (3.5-5.1) 3.7 mmol/L (3.5-5.1) Chloride Level 105 mmol/L (98-107) 109 mmol/L (98-107) Carbon Dioxide Level 28 mmol/L (21-32) 28 mmol/L (21-32) Anion Gap 7 (6-14) 8 (6-14) Blood Urea Nitrogen 40 mg/dL (8-26) 28 mg/dL (8-26) Creatinine 1.4 mg/dL (0.7-1.3) 1.2 mg/dL (0.7-1.3) Estimated GFR (Cockcroft-Gault) 64.1 76.6 BUN/Creatinine Ratio 29 (6-20) 23 (6-20) Glucose Level 250 mg/dL (70-99) 223 mg/dL (70-99) Calcium Level 9.1 mg/dL (8.5-10.1) 8.0 mg/dL (8.5-10.1) Magnesium Level 2.1 mg/dL (1.8-2.4) Total Bilirubin 0.3 mg/dL (0.2-1.0) 0.4 mg/dL (0.2-1.0) Aspartate Amino Transf (AST/SGOT) 8 U/L (15-37) 10 U/L (15-37) Alanine Aminotransferase (ALT/SGPT) 21 U/L (16-63) 20 U/L (16-63) Alkaline Phosphatase 57 U/L (46-116) 49 U/L (46-116) Total Protein 6.5 g/dL (6.4-8.2) 5.7 g/dL (6.4-8.2) Albumin 3.2 g/dL (3.4-5.0) 2.9 g/dL (3.4-5.0) Albumin/Globulin Ratio 1.0 (1.0-1.7) 1.0 (1.0-1.7) Lipase 91 U/L (73-393) Ethyl Alcohol Level < 10 mg/dL (0-10) Urine Collection Type Unknown Urine Color Yellow Urine Clarity Clear Urine pH 6.0 (<5.0-8.0) Urine Specific [place] >=1.030 (1.000-1.030) Urine Protein Negative mg/dL (NEG-TRACE) Urine Glucose (UA) 250 mg/dL (NEG) Urine Ketones (Stick) Negative mg/dL (NEG) Urine Blood Negative (NEG) Urine Nitrite Negative (NEG) Urine Bilirubin Negative (NEG) Urine Urobilinogen Dipstick 0.2 mg/dL (0.2 mg/dL) Urine Leukocyte Esterase Negative (NEG) Urine RBC 0 /HPF (0-2) Urine WBC 0 /HPF (0-4) Urine Squamous Epithelial Cells Occ /LPF Urine Bacteria 0 /HPF (0-FEW) Urine Opiates Screen Neg (NEG) Urine Methadone Screen Neg (NEG) Urine Barbiturates Neg (NEG) Urine Phencyclidine Screen Neg (NEG) Urine Amphetamine/Methamphetamine Neg (NEG) Urine Benzodiazepines Screen Neg (NEG) Urine Cocaine Screen Neg (NEG) Urine Cannabinoids Screen Neg (NEG) Urine Ethyl Alcohol Neg (NEG) Iron Level 54 ug/dL (65-175) Total Iron Binding Capacity 279 ug/dL (250-450) Iron Saturation 19 % (15-34) Vitamin B12 Level 322 pg/mL (247-911) Test 09/29/20 08:05 09/29/20 09:40 09/29/20 11:49 Glucose (Fingerstick) 229 mg/dL (70-99) 232 mg/dL (70-99) SARS-CoV-2 Antigen (Rapid) Negative (NEGATIVE) Brief Hospital Course Mr. Costa is a 54 old male who presented with upper GI bleed. Consult placed to GI. He had EGD that showed distal esophagitis with ulceration and likely 2 cm Roberson's, with biopsy taken, one small visible vessel without active bleeding. He was recommended PPI bid, soft diet, and repeat EGD in 6 months. Discharge Information Condition at Discharge: Stable Follow Up: Weeks Disposition/Orders: D/C to Home Scheduled Amlodipine Besylate (Amlodipine Besylate) 10 Mg Tablet, 10 MG PO DAILY for HTN, (Reported) Entered as Reported by: AMMY CHANDLER on 09/29/20118 Last Action: Continued on 09/29/20631 by SHAQUILLE STOVER MD Carvedilol (Carvedilol) 25 Mg Tablet, 25 MG PO BIDWMEALS for CARDIAC, (Reported) Entered as Reported by: EDEN TURPIN RN on 09/29/20810 Last Action: Converted on 09/29/20811 by EDEN TURPIN RN Lisinopril (Lisinopril) 5 Mg Tablet, 1 TAB PO DAILY for HTN, #30 Ref 5 (Reported) Entered as Reported by: AMMY CHANDLER on 09/29/20118 Last Taken: UNKNOWN on Unknown Date & Time Last Action: Continued on 09/29/20631 by HSAQUILLE STOVER MD Metformin Hcl (Metformin Hcl) 1,000 Mg Tablet, 850 MG PO BIDWMEALS for Diabetes for 30 Days, #51 (Reported) Entered as Reported by: AMMY CHANDLER on 09/29/20118 Last Taken: Unknown Dose on 09/29/20 Last Action: Edited on 09/29/20716 by EDEN TURPIN RN Pantoprazole Sodium (Pantoprazole Sodium ) 40 Mg Tablet.dr, 40 MG PO BIDAC for Esophagitis, #60 Ref 1 Prescribed by: SHAQUILLE STOVER MD on 09/29/202 Justicifation of Admission Dx: Justifications for Admission: Justification of Admission Dx: Yes (Upper GI bleed) SHAQUILLE STOVER MD Sep 29, 2020 15:59
[2020-09-29] MEDS ORDERED: PANTOPRAZOLE 40 MG TABLET.DR. PO SCH (16:30)
--- NOTE | 2020-09-29 16:45 | NUR ---
Discharge Note: NOEMÍ CARDOZA [address] Discharge instructions and discharge home medications reviewed with Patient and a copy given. All questions have been answered and understanding verbalized. All belongings taken with patient upon discharge. Patient instructed to follow up Primary Care Physician and GI Doctor. The following instructions and handouts were given: EGD, GI bleed, Protonix tablets Discontinued lines and drains: Peripheral IV intact. Patient discharged to Home or Self Care with Self via Ambulated
[2020-09-29] MEDS ORDERED: INSULIN GLARGINE SYRINGE. SQ SCH (21:00)
--- NOTE | 2020-10-01 20:36 | PATHOLOGY ---
[facility] Accession Number: [id number] . 01 Material submitted: . esophagus - DISTAL ESOPHAGUS ESOPHAGITIS R/O ROLDAN'S. Modifiers: distal . 01 Clinical history: . GI BLEED . 02 Diagnosis: Esophageal biopsies, distal esophagus: - Segments of glandular mucosa of gastric type showing moderate chronic inflammation, and segment of acute inflammatory exudate with focal attached small portions of squamous mucosa consistent with ulcer. (JPM:graham; 10/01/2020) S 10/01/2020 0906 Local . 02 Comment: Sections of the distal esophageal biopsy reveal two segments of glandular mucosa of gastric type showing moderate chronic inflammation, and a segment of acute inflammatory exudate with focal attached small portions of squamous mucosa consistent with ulcer. There is no specialized columnar epithelium diagnostic of Roldan's change. There are no viral inclusions identified. There is no evidence of malignancy. (JPM:graham; 10/01/2020) . 02 Electronically signed: . Kang Pryor MD, Pathologist NPI- [id number] . 01 Gross description: . The specimen is received in formalin, labeled "Adrian Igor, distal esophagus esophagitis, R/O Roldan's". Received are three segments of pale monteiro tissue ranging in size from 0.2-0.5 cm in maximum dimensions. The specimen is submitted entirely in cassette A1. (CAA; 09/30/2020) QAC/QAC 09/30/2020 1714 Local . 02 Pathologist provided ICD-10: K20.90 . 02 CPT . 343198 Specimen Comment: A courtesy copy of this report has been sent to [phone] Specimen Comment: Report sent to , / RUDY Performed at: 01 [facility] [address] [facility] [address], [place] [id number] MD Bassem Mooney MD Phone: [phone] Performed at: 02 [facility] [address] [place], [place] [id number] MD Kang Pryor MD Phone: [phone]
== END 2020-09-29 16:45 | disposition home or self-care (01) | DRG 368 ==
LOC: ER 21:09 → 2 SOUTH 23:29 → ER 09-29 00:05
PROVIDERS: ADMIT Family Medicine; ATTEND Family Medicine
PROC: 0W3P8ZZ Control Bleeding in Gastrointestinal Tract, Via Natural or Artificial Opening Endoscopic (ICD-10-PCS; principal; 2020-09-29 14:00)
PROC: 0DB58ZX Excision of Esophagus, Via Natural or Artificial Opening Endoscopic, Diagnostic (ICD-10-PCS; 2020-09-29 14:00)
DX: K21.01 Gastro-esophageal reflux disease with esophagitis, with bleeding (principal); K22.11 Ulcer of esophagus with bleeding; E46 Unspecified protein-calorie malnutrition; Z68.41 Body mass index [BMI] 40.0-44.9, adult; J98.11 Atelectasis; N17.9 Acute kidney failure, unspecified; Z20.822 Contact with and (suspected) exposure to COVID-19; I10 Essential (primary) hypertension; N28.89 Other specified disorders of kidney and ureter; K22.2 Esophageal obstruction; K40.20 Bilateral inguinal hernia, without obstruction or gangrene, not specified as recurrent; D64.9 Anemia, unspecified; K44.9 Diaphragmatic hernia without obstruction or gangrene; K57.30 Diverticulosis of large intestine without perforation or abscess without bleeding; R13.10 Dysphagia, unspecified; E11.65 Type 2 diabetes mellitus with hyperglycemia; E11.42 Type 2 diabetes mellitus with diabetic polyneuropathy; Z82.49 Family history of ischemic heart disease and other diseases of the circulatory system; Z80.8 Family history of malignant neoplasm of other organs or systems; Z80.42 Family history of malignant neoplasm of prostate
CPT/HCPCS: 36415; 74177; 76775; 80053; 80307; 81001; 82274; 82607; 82962; 83540; 83550; 83690; 83735; 85025; 85610; 85730; 86850; 86900; 86901; 87426; 96361; 96374; 96375; 99285; C9113; G0480; J0171; J1815; J2270; J2405; J2704; J3010; J3490; J7030; J7120; Q9967; U0003; G0378